=== PATIENT | male | born 1960 | race Caucasian/White ===

== ENCOUNTER 2021-04-07 17:37 | Emergency (ER) | payer OTHER ==
[~2021-04-07] VITALS: Ht 170.2 cm; Wt 63.5 kg
[2021-04-07] MEDS ORDERED: LEVE1000 PO (17:50)
[2021-04-07] MEDS ORDERED: TOLT4CAP PO (17:50)
[2021-04-07] MEDS ORDERED: OLAN10TA3 PO (17:50)
[2021-04-07] MEDS ORDERED: BUSP10TA3 PO (17:50)
[2021-04-07] MEDS ORDERED: CHOL100062 PO (17:50)
[2021-04-07] MEDS ORDERED: CARB200T PO (17:50)
[2021-04-07] MEDS ORDERED: GABA800T11 PO (17:50)
[2021-04-07] MEDS ORDERED: BUSP10TA35 PO (17:50)
[2021-04-07] MEDS ORDERED: TRAZ300T2 PO (17:50)
[2021-04-07] MEDS ORDERED: ZOLP10TA2 PO (17:50)
[2021-04-07] MEDS ORDERED: MIRT-91 PO (17:50)
[2021-04-07] MEDS ORDERED: GABA-536 PO (17:50)
[2021-04-07] MEDS ORDERED: ATOR10TA PO (17:50)
[2021-04-07] MEDS ORDERED: OMEG100037 PO (17:50)
--- NOTE | 2021-04-07 17:50 | NUR ---
[id number] B&C for noted abdominal pain by staff x 2 hours. Patient a/ox1, breathing even and unlabored, no sob noted. Needs attended.
--- NOTE | 2021-04-07 17:54 | NUR ---
facility admin karina # [phone]
--- NOTE | 2021-04-07 18:01 | NUR ---
ua sent to lab.
[2021-04-07 18:07] LABS: BASOPHILS % (AUTO) 0.3 % (0.0-2.0); HEMATOCRIT 30 % (39-51); HEMOGLOBIN 10.1 g/dL (13.5-17.5); LYMPHOCYTES # (AUTO) 1.2 K/uL (0.8-4.8); LYMPHOCYTES % (AUTO) 22.8 % (20.0-44.0); MEAN CORPUSCULAR HGB CONC 33 g/dl (31.0-36.0); MEAN CORPUSCULAR VOLUME 95 fL (80-96); MONOCYTES # (AUTO) 0.4 K/uL (0.1-1.30); MONOCYTES % (AUTO) 7.1 % (2.0-12.0); NEUTROPHILS # (AUTO) 3.7 K/uL (1.8-8.9); NEUTROPHILS % (AUTO) 68.8 % (43.0-81.0); PLATELET COUNT (AUTO) 224 K/uL (150-450); WHITE BLOOD COUNT (AUTO) 5.4 K/uL (4.3-11.0)
[2021-04-07 18:09] LABS: BILIRUBIN,URINE Negative (NEGATIVE); COLOR,URINE YELLOW (YELLOW); LEUKOCYTE ESTERASE ,URINE Negative (NEGATIVE); NITRITE, URINE Negative (NEGATIVE); PH,URINE 7.5 (5.0-8.0); PROTEIN,URINE Negative (NEGATIVE); UGLUCOSE Negative (NEGATIVE); UROBILINOGEN,URINE 0.2 EU/dL (0.2)
[2021-04-07 18:14] LABS: CALCIUM, SERUM 8.1 mg/dL (8.5-10.1); CREATININE 0.6 mg/dL (0.6-1.3); POTASSIUM 3.7 mmol/L (3.5-5.1)
[2021-04-07 18:16] LABS: BACTERIA,URINE None seen /HPF (None Seen); SQUAMOUS EPITHELIAL CELL,UR Few /HPF (None Seen); WBC,URINE 0-2 /HPF (0-3)
[2021-04-07 18:20] LABS: BILIRUBIN,DIRECT 0.1 mg/dL (0.0-0.2); BILIRUBIN,TOTAL 0.1 mg/dL (0.2-1.0); TOTAL PROTEIN, SERUM 6.7 g/dL (6.4-8.2)
[2021-04-07] MEDS ORDERED: LORAZEPAM INJ 2 MG/ML VIAL ONE (18:50)
[2021-04-07] MEDS ORDERED: LORAZEPAM INJ 2 MG/ML VIAL IM ONE (19:00)
--- NOTE | 2021-04-07 19:29 | NUR ---
RECEIVED REPORT FOR [facility]. VSS, PATIENT RESTING IN BED, IN NO ACUTE DISTRESS.
--- NOTE | 2021-04-07 19:47 | NUR ---
[facility] CALLED FOR TRANSPORT. ETA 30-40 MINUTES.
--- NOTE | 2021-04-07 19:57 | NUR ---
UPDATED FACILITY ADMIN KEVIN ON PT STATUS.
--- NOTE | 2021-04-07 20:26 | NUR ---
[facility] AT BED SIDE TO HIDE PASTER THE PT. REPORT GIVEN
[2021-04-07 20:42] VITALS: BP 124/64
== END 2021-04-07 20:42 ==
LOC: ER 17:42
DX: R10.9 Unspecified abdominal pain (principal); R62.50 Unspecified lack of expected normal physiological development in childhood; G40.909 Epilepsy, unspecified, not intractable, without status epilepticus; Z79.899 Other long term (current) drug therapy
CPT/HCPCS: 36415; 74176; 80048; 80076; 81001; 83690; 85025; 96372; 99284; J2060

== ENCOUNTER 2021-07-10 17:39 | Inpatient (IN) | payer OTHER ==
[~2021-07-10] VITALS: Ht 172.7 cm; Wt 49.6 kg
[~2021-07-10 17:39] MED LIST: ATOR10TA PO; BUSP10TA3 PO; BUSP10TA35 PO; CARB200T PO; CHOL100062 PO; GABA-536 PO; GABA800T11 PO; LEVE1000 PO; MIRT-91 PO; OLAN10TA3 PO; OMEG100037 PO; TOLT4CAP PO; TRAZ300T2 PO; ZOLP10TA2 PO
[2021-07-10] MEDS ORDERED: IV LR 1000 ML 1,000 ML BAG IV ONE (18:00)
[2021-07-10] MEDS ORDERED: ACETAMINOPHEN 650 MG/SUPP.RECT RC ONE ×2 (18:00→18:15)
[2021-07-10] MEDS ORDERED: CEFTRIAXONE 1GM BAG (ER ONLY) 50 ML IV ONE ×2 (18:00→18:15)
--- NOTE | 2021-07-10 18:00 | NUR ---
[id number] FRM CORRECTION, NON RESPONSIVE X 2 HOURS. 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 WAS GIVEN 1L NS PROFESSOR OF INDUSTRIAL TECHNOLOGY. PT SEEN & EVAL'D BY DR. MAX. RR EVEN & UNLABORED. PLACED ON AUTO CLAIMS ADJUSTER, SR. WILL CONT TO MONITIOR.
--- NOTE | 2021-07-10 18:07 | NUR ---
SNEHAL CONTAINER COORDINATOR OF BOARD AND CARE
[2021-07-10 18:25] LABS: BASOPHILS % (AUTO) 0.3 % (0.0-2.0); HEMATOCRIT 27 % (39-51); HEMOGLOBIN 8.7 g/dL (13.5-17.5); LYMPHOCYTES # (AUTO) 0.7 K/uL (0.8-4.8); LYMPHOCYTES % (AUTO) 4.7 % (20.0-44.0); MEAN CORPUSCULAR HGB CONC 33 g/dl (31.0-36.0); MEAN CORPUSCULAR VOLUME 93 fL (80-96); MONOCYTES # (AUTO) 1.1 K/uL (0.1-1.30); MONOCYTES % (AUTO) 7.5 % (2.0-12.0); NEUTROPHILS % (AUTO) 87.5 % (43.0-81.0); PLATELET COUNT (AUTO) 257 K/uL (150-450); RED BLOOD CELL COUNT(AUTO) 2.86 MIL/uL (4.5-6.0); WHITE BLOOD COUNT (AUTO) 14.8 K/uL (4.3-11.0)
--- NOTE | 2021-07-10 18:32 | NUR ---
MEDICATED PER ERMD ORDER, PT RA WELL. PT TO CT VIA ROSANNE.
[2021-07-10 18:47] LABS: CALCIUM, SERUM 7.4 mg/dL (8.5-10.1); CARBON DIOXIDE 27 mmol/L (21-32); CHLORIDE 101 mmol/L (98-107); CREATININE 0.9 mg/dL (0.6-1.3); GLUCOSE 118 mg/dL (74-106); POTASSIUM 3.7 mmol/L (3.5-5.1); SODIUM SERUM 134 mmol/L (136-145); UREA NITROGEN, BLOOD 17 mg/dL (7-18)
[2021-07-10 18:53] LABS: ALANINE AMINOTRANSFERASE 12 U/L (12-78); ALBUMIN 2.5 g/dL (3.4-5.0); ALKALINE PHOSPHATASE 106 U/L (46-116); ASPARTATE AMINOTRANSFERASE 13 U/L (15-37); BILIRUBIN,DIRECT 0.2 mg/dL (0.0-0.2); BILIRUBIN,TOTAL 0.4 mg/dL (0.2-1.0); TOTAL PROTEIN, SERUM 6.1 g/dL (6.4-8.2)
[2021-07-10 19:16] LABS: BILIRUBIN,URINE SMALL (NEGATIVE); COLOR,URINE YELLOW (YELLOW); LEUKOCYTE ESTERASE ,URINE Moderate (NEGATIVE); NITRITE, URINE Negative (NEGATIVE); PH,URINE 5.5 (5.0-8.0); PROTEIN,URINE 100 mg/dl (NEGATIVE); UGLUCOSE Negative (NEGATIVE)
[2021-07-10 19:36] LABS: BACTERIA,URINE 1+ /HPF (None Seen); MUCUS,URINE Few /LPF (None Seen); SQUAMOUS EPITHELIAL CELL,UR Few /HPF (None Seen); URINE AMORPHOUS URATE Few /HPF (None Seen)
--- NOTE | 2021-07-10 20:56 | NUR ---
CALLED [facility] PAGED ELENA RODRIGUEZ
--- NOTE | 2021-07-10 22:22 | NUR ---
SPOKE TO VIJAY [employer] ADMINISTRATOR FROM [facility] AND REC'D AUTHORIZATION TO ADMIT THE PT
[2021-07-10] MEDS ORDERED: MAGNESIUM HYDROXIDE 30 ML UDC PO PRN (23:00)
[2021-07-10] MEDS ORDERED: Z GUARD REMEDY 2 OZ OINT TP PRN (23:00)
[2021-07-10] MEDS ORDERED: ONDANSETRON HCL/PF 4 MG/2 ML VIAL IVP PRN (23:00)
[2021-07-10] MEDS ORDERED: MAG HYDROX/AL HYDROX/SIMETH 30 ML UDC PO PRN (23:00)
--- NOTE | 2021-07-11 01:08 | NUR ---
tele [phone]
--- NOTE | 2021-07-11 02:49 | NUR ---
attempted to give report to nurse, staff states the nurse is busy. will call back.
--- NOTE | 2021-07-11 03:03 | NUR ---
REPORT GIVEN TO CUBA NURSE FOR GABI.
--- NOTE | 2021-07-11 03:18 | NUR ---
PATIEN TAKEN UP TO ASSIGNEDROOM VIA ACLS PROTOCOLS.
[2021-07-11 04:00] VITALS: BP 141/70
[2021-07-11] MEDS: IV NS 0.9% 1,000 ML IV PRN ×2 (04:25→18:25)
--- NOTE | 2021-07-11 05:57 | NUR ---
RN notes Admitted a 60 year old male from ER via stretcher with diagnosis of sepsis. Patient has a history of mental retardation and seizure. Alert, awake unable to follow commands with delayed slurred speech. In stable condition, on room air tolerating well. Vital signs wnl. Transferred to bed safely and comfortably. No physical manifestation of pain or discomfort. Remains afebrile with skin warm and dry to touch. Skin intact. Kept clean and dry. Will endorse to next shift for continuity of care.
--- NOTE | 2021-07-11 07:43 | NUR ---
RN OPEN NOTE: PT RECEIVED Alert, awake unable to follow commands with delayed slurred speech. In stable condition, on room air tolerating well. Vital signs wnl. . No COMPLAIN OF pain or discomfort. AFEBRILE, skin warm and dry to touch. Skin intact. IV LOCATED RT FA, 18 G RUNIING NS @75ML/HR. AND UOP 800ML @ 0730. WILL CONTINUE MONITOR AND ASSESS.
[2021-07-11 07:56] LABS: BASOPHILS % (AUTO) 0.1 % (0.0-2.0); HEMATOCRIT 31 % (39-51); HEMOGLOBIN 10.2 g/dL (13.5-17.5); LYMPHOCYTES # (AUTO) 0.5 K/uL (0.8-4.8); MEAN CORPUSCULAR HGB CONC 33 g/dl (31.0-36.0); MEAN CORPUSCULAR VOLUME 93 fL (80-96); MONOCYTES # (AUTO) 0.5 K/uL (0.1-1.30); MONOCYTES % (AUTO) 4.6 % (2.0-12.0); NEUTROPHILS # (AUTO) 10.4 K/uL (1.8-8.9); NEUTROPHILS % (AUTO) 91.3 % (43.0-81.0); PLATELET COUNT (AUTO) 245 K/uL (150-450); RED BLOOD CELL COUNT(AUTO) 3.29 MIL/uL (4.5-6.0); WHITE BLOOD COUNT (AUTO) 11.4 K/uL (4.3-11.0)
[2021-07-11] MEDS: GABAPENTIN 400 MG CAPSULE PO SCH ×3 (08:11→17:00)
[2021-07-11] MEDS: CARBAMAZEPINE 200 MG TABLET PO SCH ×3 (08:11→17:00)
[2021-07-11] MEDS: PANTOPRAZOLE 40 MG TABLET.DR PO SCH (08:12)
[2021-07-11] MEDS: LEVETIRACETAM (250 MG) 250 MG TABLET PO SCH ×2 (08:12→21:32)
[2021-07-11] MEDS: busPIRone 5 MG TABLET PO SCH ×3 (08:12→21:34)
[2021-07-11 08:42] LABS: ALBUMIN 2.5 g/dL (3.4-5.0); BILIRUBIN,TOTAL 0.3 mg/dL (0.2-1.0); CALCIUM, SERUM 7.7 mg/dL (8.5-10.1); CREATININE 0.6 mg/dL (0.6-1.3); MAGNESIUM 1.9 mg/dL (1.8-2.4); PHOSPHORUS 2.3 mg/dL (2.5-4.9); POTASSIUM 3.9 mmol/L (3.5-5.1); TOTAL PROTEIN, SERUM 6.3 g/dL (6.4-8.2)
[2021-07-11] MEDS ORDERED: Medication Not On Formulary EA (Omega-3/Dha/Epa/Fish Oil (Fish Oil 1,000 mg Softgel) 1,0 PO SCH (09:00)
[2021-07-11] MEDS: TOLTERODINE 2 MG CAP.SR PO SCH (09:44)
[2021-07-11 10:11] VITALS: BP 141/75
[2021-07-11 12:00] VITALS: BP 116/53
[2021-07-11] MEDS ORDERED: K PHOS NEUTRAL 250 MG TABLET PO ONE (12:00)
[2021-07-11 16:00] VITALS: BP 120/61
[2021-07-11] MEDS: ACETAMINOPHEN 325 MG TABLET PO PRN ×2 (17:13→21:36)
[2021-07-11] MEDS: CEFTRIAXONE 1 G in IV D5W 50 ML IV SCH (18:10)
--- NOTE | 2021-07-11 19:16 | NUR ---
RN CLOSED NOTE: PT REMAIN Alert, awake able to follow commands with delayed slurred speech. In stable condition, on room air tolerating well. Vital signs wnl. . No COMPLAIN OF pain or discomfort. AFEBRILE, skin warm and dry to touch. Skin intact. IV LOCATED RT FA, 18 G RUINING NS @75ML/HR. AND UOP 1600ML DURING THE SHIFT. SAFETY MEASURES IMPLEMENTED, BED AT LOW POSITION, CALL LIGHT WITHIN REACH. REPORT ENDURES TO COMING SHIFT TO CONTINUE MONITOR AND ASSESS.
[2021-07-11 20:00] VITALS: BP 138/68
[2021-07-11] MEDS: TRAZODONE 50 MG TABLET PO SCH (21:34)
[2021-07-11] MEDS: OLANZAPINE 10 MG TABLET PO SCH (21:35)
[2021-07-11] MEDS: MIRTAZAPINE 15 MG TABLET PO SCH (21:35)
[2021-07-11] MEDS: ATORVASTATIN 10 MG TABLET PO SCH (21:35)
[2021-07-12] VITALS: BP 107/57
--- NOTE | 2021-07-12 03:50 | NUR ---
RN notes Awake, alert but non verbal. In bed with no distress noted. Patient has not ambulated since admission. On room air tolerating well. No complaint of pain or discomfort. Patient is mentally challenged. Able to answer yes or no question. At about 22:44 housekeeping saw patient and blood on the floor. Called for help. And when help came in the room patient was kneeling at the bedside of Teddy. Noted blood on the floor. Help to be in comfortable position. Range of motion performed without pain. Vital signs checked, within normal limits. Put back to bed safely. Noted with lacerations on forehead, right eyelid and back of the head. Cleanse and first aid treatment done. Noted patient pulled out IV peripheral line and grajeda catheter. Blood came from penis due to trauma of pulling out with full blown balloon. Inserted new line at the right and left forearm. Procedure well tolerated with good back flow. Neuro check initiated. Called MD (Dr. Zain Parkinson) and obtained order for CT scan without contrast. Noted and carried out. Kept clean and dry. Will continue to monitor.
[2021-07-12 04:00] VITALS: BP 128/55
[2021-07-12] MEDS: IV NS 0.9% 1,000 ML IV PRN ×2 (07:17→21:52)
[2021-07-12 07:28] LABS: BASOPHILS % (AUTO) 0.3 % (0.0-2.0); EOSINOPHILS % (AUTO) 0.1 % (0.0-6.0); HEMATOCRIT 28 % (39-51); HEMOGLOBIN 9.4 g/dL (13.5-17.5); LYMPHOCYTES # (AUTO) 0.4 K/uL (0.8-4.8); LYMPHOCYTES % (AUTO) 6.7 % (20.0-44.0); MEAN CORPUSCULAR HGB CONC 34 g/dl (31.0-36.0); MEAN CORPUSCULAR VOLUME 93 fL (80-96); MONOCYTES # (AUTO) 0.5 K/uL (0.1-1.30); MONOCYTES % (AUTO) 7.4 % (2.0-12.0); NEUTROPHILS # (AUTO) 5.5 K/uL (1.8-8.9); NEUTROPHILS % (AUTO) 85.5 % (43.0-81.0); PLATELET COUNT (AUTO) 209 K/uL (150-450); WHITE BLOOD COUNT (AUTO) 6.4 K/uL (4.3-11.0)
--- NOTE | 2021-07-12 07:45 | NUR ---
RN notes Pt received in bed Awake, alert but non verbal. with no sign of distress or sob noted at this time. On room air tolerating well. No complaint of pain or discomfort. Patient is mentally challenged. Able to answer yes or no question. soft bilateral restrains observed, safety measures in place to prevent fall bed alarm on bed locked and in lowest position will continue to monitor.
[2021-07-12 07:48] LABS: CALCIUM, SERUM 8.4 mg/dL (8.5-10.1); CREATININE 0.8 mg/dL (0.6-1.3); POTASSIUM 3.8 mmol/L (3.5-5.1)
[2021-07-12 08:00] VITALS: BP_SYST 126; BP_DIAS 60; BP_DIAS 80
[2021-07-12] MEDS: PANTOPRAZOLE 40 MG TABLET.DR PO SCH (08:49)
[2021-07-12] MEDS: busPIRone 5 MG TABLET PO SCH ×3 (08:49→21:50)
[2021-07-12] MEDS: GABAPENTIN 400 MG CAPSULE PO SCH ×3 (08:49→16:36)
[2021-07-12] MEDS: CARBAMAZEPINE 200 MG TABLET PO SCH ×3 (08:49→16:36)
[2021-07-12] MEDS: TOLTERODINE 2 MG CAP.SR PO SCH (08:49)
[2021-07-12] MEDS: LEVETIRACETAM (250 MG) 250 MG TABLET PO SCH ×2 (08:50→21:47)
--- NOTE | 2021-07-12 09:50 | NUR ---
RN NOTES DR. STAFFORD NOTIFIED, PT HAD A FALL THIS MORNING, THUS ON RESTRAINT. CT SCAN RESULT RELAYED NEG FOR IC HEMORRHAGE. ALSO PATIENT PULLED OUT HIS CASTAÑEDA AND OKAY TO NOT RE INSERT IT FOR NOW.
[2021-07-12 12:00] VITALS: BP 129/67
[2021-07-12 16:00] VITALS: BP 132/69
[2021-07-12] MEDS: CEFTRIAXONE 1 G in IV D5W 50 ML IV SCH (18:10)
--- NOTE | 2021-07-12 18:53 | NUR ---
RN CLOSED NOTE: PT REMAIN ALERT MENTALLY CHALLENGE IN STABLE CONDITION, WITH NO SIGH OF DISTRESS AT THIS TIME, PT IS on room air tolerating WELL. No COMPLAIN OF pain or discomfort. IV LOCATED IN THE RIGHT/ FA, 18 G RUINING NS @75ML/HR. BILATERAL SOFT RESTRAIN IN PLACE, SAFETY MEASURES IMPLEMENTED, BED AT LOWEST POSITION, CALL LIGHT WITHIN REACH. WILL REPORT TO INCOMING SHIFT TO CONTINUE MONITORING
[2021-07-12] MEDS: OLANZAPINE 10 MG TABLET PO SCH (21:47)
[2021-07-12] MEDS: ATORVASTATIN 10 MG TABLET PO SCH (21:48)
[2021-07-12] MEDS: TRAZODONE 50 MG TABLET PO SCH (21:49)
[2021-07-12] MEDS: MIRTAZAPINE 15 MG TABLET PO SCH (21:50)
[2021-07-12 22:00] VITALS: BP 132/69
[2021-07-13] VITALS: BP 132/69
[2021-07-13 04:00] VITALS: BP 112/62
--- NOTE | 2021-07-13 05:37 | NUR ---
RN notes Resting comfortably in bed with no distress noted. Breathing even and unlabored. On room air tolerating well. Bilateral wrist restraints in place, and released every two hours for hygiene, repositioning and circulation. No physical manifestation of pain or discomfort. Patient is mentally challenged. Answers a yes or no question. No significant change of condition. Kept clean and dry. Will endorse to next shift for continuity of care.
[2021-07-13 07:19] LABS: BASOPHILS % (AUTO) 0.1 % (0.0-2.0); EOSINOPHILS % (AUTO) 0.3 % (0.0-6.0); HEMATOCRIT 28 % (39-51); HEMOGLOBIN 9.4 g/dL (13.5-17.5); LYMPHOCYTES # (AUTO) 0.6 K/uL (0.8-4.8); MEAN CORPUSCULAR HGB CONC 33 g/dl (31.0-36.0); MEAN CORPUSCULAR VOLUME 95 fL (80-96); MONOCYTES # (AUTO) 0.6 K/uL (0.1-1.30); MONOCYTES % (AUTO) 13.3 % (2.0-12.0); NEUTROPHILS # (AUTO) 3.1 K/uL (1.8-8.9); NEUTROPHILS % (AUTO) 71.3 % (43.0-81.0); PLATELET COUNT (AUTO) 220 K/uL (150-450); RED BLOOD CELL COUNT(AUTO) 2.99 MIL/uL (4.5-6.0); WHITE BLOOD COUNT (AUTO) 4.3 K/uL (4.3-11.0)
--- NOTE | 2021-07-13 07:29 | NUR ---
RN notes PT RECEIVED IN BED TRYING TO GET UP with no distress noted OR SOB, PT IS On room air tolerating well. Bilateral wrist restraints in place, Patient is mentally challenged. Answers a yes or no question . SAFETY MEASURE IN PLACE CALL LIGHT WITHIN REACH, BED ALARM ON, BED ALSO LOCKED AND IN LOWEST POSITION Will CONTINUE TO MONITOR
[2021-07-13] MEDS: PANTOPRAZOLE 40 MG TABLET.DR PO SCH (07:55)
[2021-07-13 08:00] VITALS: BP 135/67
[2021-07-13 08:13] LABS: CALCIUM, SERUM 8.5 mg/dL (8.5-10.1); CREATININE 0.8 mg/dL (0.6-1.3); POTASSIUM 3.8 mmol/L (3.5-5.1)
[2021-07-13] MEDS: GABAPENTIN 400 MG CAPSULE PO SCH ×3 (08:36→16:24)
[2021-07-13] MEDS: LEVETIRACETAM (250 MG) 250 MG TABLET PO SCH ×2 (08:36→21:54)
[2021-07-13] MEDS: busPIRone 5 MG TABLET PO SCH ×3 (08:37→21:55)
[2021-07-13] MEDS: CARBAMAZEPINE 200 MG TABLET PO SCH ×3 (08:44→16:24)
[2021-07-13] MEDS: TOLTERODINE 2 MG CAP.SR PO SCH (08:44)
--- NOTE | 2021-07-13 09:30 | NUR ---
RN NOTE RECEIVED PT AND REPORT FROM GREY VILLARREAL. PT IS ON RA SAT 90% TOLERATING WELL WITH NO SIGNS OF LABORED BREATHING OR DISTRESS, PT IS A/OX2, CONFUSED, AND HAS SOFT WRIST RESTRAINTS X2. PT IS IN DIAPER, HAS WOUND IN BACK OF HEAD, PT IS ON CARDIAC LOW FAT DIET, PT DOES NOT HAVE IV ACCESS AT THIS TIME AFTER PULLING HIS OWN IV OUT, WILL HAVE MIDLINE INSERTED THIS MORNING, PT IS FALL RISK. BED LOCKED IN LOWEST POSITION WITH BED ALARM ON, CALL LIGHT IS WITHIN REACH, HOSPITAL SAFETY PRECAUTIONS ARE IN PLACE. WILL CONTINUE TO MONITOR THIS SHIFT.
--- NOTE | 2021-07-13 11:00 | NUR ---
RN NOTE PT RECEIVED L UA MIDLINE 18G PATENT, FLUSHING, AND RECEIVING FLUIDS AT 75ML/HR.
[2021-07-13 12:00] VITALS: BP 135/67
[2021-07-13] MEDS: MEROPENEM 1 G in IV NS 0.9% 100 ML IV SCH ×2 (13:06→21:55)
[2021-07-13] MEDS: LORAZEPAM INJ 2 MG/ML VIAL IV PRN ×2 (15:14→23:06)
--- NOTE | 2021-07-13 18:43 | NUR ---
RN CLOSING NOTE PT IS LYING IN BED. PT IS ON RA SAT 90% TOLERATING WELL WITH NO SIGNS OF LABORED BREATHING OR DISTRESS, PT IS A/OX2, CONFUSED, AND HAS SOFT WRIST RESTRAINTS X2. PT IS IN DIAPER, HAS WOUND IN BACK OF HEAD WITH MEPLIX, PT IS ON CARDIAC LOW FAT DIET, PT HAS L UA MIDLINE 18G, PT RECEIVED ONE TIME DOSE OF ATIVAN, PT IS FALL RISK. BED LOCKED IN LOWEST POSITION WITH BED ALARM ON, CALL LIGHT IS WITHIN REACH, HOSPITAL SAFETY PRECAUTIONS ARE IN PLACE. WILL ENDORSE TO SAMPLING EXPERT NURSE FOR GABI.
--- NOTE | 2021-07-13 19:40 | NUR ---
RN OPENING NOTE PATIENT ENDORSED BY DAY SHIFT NURSE IN STABLE CONDITIONS. PATIENT IS A/O 1, ON ROOM AIR WITH O2 SAT OF 100%, NO SIGNS OF LABORED BREATHING AT THIS TIME. L UA MIDLINE 18 G IS PATENT WITH NO SIGNS OF INFILTRATION. BILATERAL SOFT WRIST RESTRAINTS REMAIN IN PLACE, NO SINGS OF COMPLICATIONS TO THE SKIN OR CIRCULATION DUE TO SOFT WRIST RESTRAINTS. PATIENT IS NOTED WITH WOUND IN THE BACK OF THE HEAD, WITH MEPLIX, PATIENT IS FALL RISK, ALL SAFETY MEASURES IMPLEMENTED, BED IS AT LOWEST POSITION WITH WHEELS LOCKED IN PLACE, CALL LIGHT IS WITHIN REACH, BED ALARM IS ON. WILL CONTINUE TO MONITOR FOR ANY CHANGES THROUGHOUT SHIFT.
[2021-07-13 20:00] VITALS: BP 143/61
[2021-07-13] MEDS: MIRTAZAPINE 15 MG TABLET PO SCH (21:54)
[2021-07-13] MEDS: TRAZODONE 50 MG TABLET PO SCH (21:54)
[2021-07-13] MEDS: ATORVASTATIN 10 MG TABLET PO SCH (21:54)
[2021-07-13] MEDS: OLANZAPINE 10 MG TABLET PO SCH (21:54)
[2021-07-13] MEDS: IV NS 0.9% 1,000 ML IV PRN (22:06)
[2021-07-14 04:00] VITALS: BP 133/85
[2021-07-14] MEDS: MEROPENEM 1 G in IV NS 0.9% 100 ML IV SCH ×3 (05:19→22:01)
--- NOTE | 2021-07-14 06:40 | NUR ---
RN OPENING NOTE PATIENT ENDORSED BY DAY SHIFT NURSE IN STABLE CONDITIONS. PATIENT IS A/O 1, ON ROOM AIR WITH O2 SAT OF 100%, NO SIGNS OF LABORED BREATHING AT THIS TIME. L UA MIDLINE 18 G IS PATENT WITH NO SIGNS OF INFILTRATION. BILATERAL SOFT WRIST RESTRAINTS REMAIN IN PLACE, NO SINGS OF COMPLICATIONS TO THE SKIN OR CIRCULATION DUE TO SOFT WRIST RESTRAINTS. PATIENT IS NOTED WITH WOUND IN THE BACK OF THE HEAD, WITH MEPLIX, PATIENT IS FALL RISK, ALL SAFETY MEASURES IMPLEMENTED, BED IS AT LOWEST POSITION WITH WHEELS LOCKED IN PLACE, CALL LIGHT IS WITHIN REACH, BED ALARM IS ON. WILL CONTINUE TO MONITOR FOR ANY CHANGES THROUGHOUT SHIFT. Addendum: 07/14/21 at 0650 by COLUMBA JAMES RN DISREGARD THIS NOTE
--- NOTE | 2021-07-14 06:51 | NUR ---
RN CLOSING NOTE PATIENT WILL BE ENDORSED TO DAY SHIFT NURSE WITH NO SIGNIFICANT CHANGES AND IN STABLE CONDITIONS. PATIENT REMAINS A/O x1, ON ROOM AIR WITH O2 SAT OF 100%, NO SIGNS OF LABORED BREATHING AT THIS TIME. L UA MIDLINE 18 G IS PATENT WITH NO SIGNS OF INFILTRATION. BILATERAL SOFT WRIST RESTRAINTS REMAIN IN PLACE, NO SINGS OF COMPLICATIONS TO THE SKIN OR CIRCULATION DUE TO SOFT WRIST RESTRAINTS. PATIENT REMAINS WITH WOUND IN THE BACK OF THE HEAD, WITH MEPLIX, PATIENT IS FALL RISK, ALL SAFETY MEASURES IMPLEMENTED, BED IS AT LOWEST POSITION WITH WHEELS LOCKED IN PLACE, CALL LIGHT IS WITHIN REACH, BED ALARM IS ON. WILL ENDORSE TO DAY SHIFT NURSE FOR CONTINUITY OF CARE.
--- NOTE | 2021-07-14 07:30 | NUR ---
RN OPENING NOTE PATIENT RECEIVED AWAKE IN BED, A/O X 1, ON ROOM AIR WITH O2 SAT OF 100%, NO SIGNS OF LABORED BREATHING AT THIS TIME. VIMAL MIDLINE 18G IN PLACE, PATENT WITH NO SIGNS OF INFILTRATION AND FLUSHING WELL. BILATERAL SOFT WRIST RESTRAINTS REMAIN IN PLACE, NO SINGS OF COMPLICATIONS OR CIRCULATION PROBLEMS. FALL AND ALL SAFETY MEASURES IMPLEMENTED, BED IS AT LOWEST POSITION WITH WHEELS LOCKED IN PLACE, CALL LIGHT IS WITHIN REACH, BED ALARM IS ON. WILL CONTINUE TO MONITOR FOR ANY CHANGES THROUGHOUT SHIFT
[2021-07-14 08:19] LABS: BASOPHILS % (AUTO) 0.2 % (0.0-2.0); EOSINOPHILS % (AUTO) 0.3 % (0.0-6.0); HEMATOCRIT 29 % (39-51); HEMOGLOBIN 10.1 g/dL (13.5-17.5); LYMPHOCYTES # (AUTO) 0.6 K/uL (0.8-4.8); LYMPHOCYTES % (AUTO) 11.8 % (20.0-44.0); MEAN CORPUSCULAR HGB CONC 34 g/dl (31.0-36.0); MEAN CORPUSCULAR VOLUME 91 fL (80-96); MONOCYTES # (AUTO) 0.4 K/uL (0.1-1.30); MONOCYTES % (AUTO) 8.7 % (2.0-12.0); NEUTROPHILS # (AUTO) 3.9 K/uL (1.8-8.9); PLATELET COUNT (AUTO) 252 K/uL (150-450)
[2021-07-14] MEDS: GABAPENTIN 400 MG CAPSULE PO SCH ×3 (08:33→16:25)
[2021-07-14] MEDS: CARBAMAZEPINE 200 MG TABLET PO SCH ×3 (08:33→16:25)
[2021-07-14] MEDS: LEVETIRACETAM (250 MG) 250 MG TABLET PO SCH ×2 (08:33→22:05)
[2021-07-14] MEDS: busPIRone 5 MG TABLET PO SCH ×3 (08:33→22:06)
[2021-07-14] MEDS: PANTOPRAZOLE 40 MG TABLET.DR PO SCH (08:33)
[2021-07-14 08:42] LABS: CALCIUM, SERUM 8.5 mg/dL (8.5-10.1); CREATININE 0.6 mg/dL (0.6-1.3); POTASSIUM 4.1 mmol/L (3.5-5.1)
[2021-07-14] MEDS: TOLTERODINE 2 MG CAP.SR PO SCH (09:32)
[2021-07-14 12:00] VITALS: BP 155/72
[2021-07-14] MEDS: ENSURE ENLIVE 237 ML LIQUID (VANILLA) PO SCH (12:21)
[2021-07-14] MEDS: IV NS 0.9% 1,000 ML IV PRN (12:54)
[2021-07-14] MEDS: LORAZEPAM INJ 2 MG/ML VIAL IV PRN (16:25)
[2021-07-14 20:00] VITALS: BP 123/57
[2021-07-14] MEDS: TRAZODONE 50 MG TABLET PO SCH (22:07)
[2021-07-14] MEDS: MIRTAZAPINE 15 MG TABLET PO SCH (22:07)
[2021-07-14] MEDS: ATORVASTATIN 10 MG TABLET PO SCH (22:07)
[2021-07-14] MEDS: OLANZAPINE 10 MG TABLET PO SCH (22:08)
[2021-07-14] MEDS ORDERED: LORAZEPAM INJ 2 MG/ML VIAL IV PRN (22:30)
[2021-07-15 04:00] VITALS: BP 127/92
[2021-07-15] MEDS: MEROPENEM 1 G in IV NS 0.9% 100 ML IV SCH ×2 (05:17→12:29)
--- NOTE | 2021-07-15 06:35 | NUR ---
RN CLOSING NOTE PT IS LAYING IN BED AGITATED AND CONTINUES TO BE IN RESTRAINTS AND A/O 1, ON ROOM AIR WITH O2 SAT OF 100%, NO SIGNS OF LABORED BREATHING AT THIS TIME. L UA MIDLINE 18 G IS PATENT WITH NO SIGNS OF INFILTRATION. PRN LORAZEPAM FREQ CHANGED FROM Q6HR TO Q4HR PRN. LAST DOSE GIVEN AROUND 2300 07/14. NO SINGS OF COMPLICATIONS TO THE SKIN OR CIRCULATION DUE TO SOFT WRIST RESTRAINTS. PT IS NOTED WITH WOUND IN THE BACK OF THE HEAD, WITH MEPLIX, PATIENT IS FALL RISK, ALL SAFETY MEASURES IMPLEMENTED, BED IS AT LOWEST POSITION WITH WHEELS LOCKED IN PLACE, CALL LIGHT IS WITHIN REACH, BED ALARM IS ON. WILL ENDORSE TO DAY SHIFT NURSE FOR GABI.
[2021-07-15 07:01] LABS: CALCIUM, SERUM 8.7 mg/dL (8.5-10.1); CREATININE 0.8 mg/dL (0.6-1.3); POTASSIUM 3.6 mmol/L (3.5-5.1)
[2021-07-15 07:19] LABS: BASOPHILS % (AUTO) 0.4 % (0.0-2.0); EOSINOPHILS % (AUTO) 0.4 % (0.0-6.0); HEMATOCRIT 32 % (39-51); HEMOGLOBIN 10.8 g/dL (13.5-17.5); LYMPHOCYTES # (AUTO) 1.3 K/uL (0.8-4.8); LYMPHOCYTES % (AUTO) 15.5 % (20.0-44.0); MEAN CORPUSCULAR HGB CONC 34 g/dl (31.0-36.0); MEAN CORPUSCULAR VOLUME 91 fL (80-96); MONOCYTES # (AUTO) 0.9 K/uL (0.1-1.30); MONOCYTES % (AUTO) 10.9 % (2.0-12.0); NEUTROPHILS % (AUTO) 72.8 % (43.0-81.0); PLATELET COUNT (AUTO) 276 K/uL (150-450); RED BLOOD CELL COUNT(AUTO) 3.46 MIL/uL (4.5-6.0); WHITE BLOOD COUNT (AUTO) 8.2 K/uL (4.3-11.0)
--- NOTE | 2021-07-15 07:50 | NUR ---
MS RN OPENING NOTES RECEIVED PATIENT IN BED, AWAKE, A/O X1, SCREAMING, AGITATED. PATIENT ON ROOM AIR; BREATHING EVEN AND UNLABORED; NO SOB NOTED. NO COMPLAINS OF PAIN. VIMAL MIDLINE IN PLACE AND INTACT RUNNING NS @75 MLS/HR. BILATERAL SOFT WRIST RESTRAINS PRESENT. SAFETY PRECAUTIONS IN PLACE; BED IN LOW POSITION AND LOCKED, RAILS UP X2, CALL LIGHT WITHIN REACH. WILL CONTINUE TO MONITOR PATIENT.
[2021-07-15] MEDS: GABAPENTIN 400 MG CAPSULE PO SCH ×2 (08:38→12:29)
[2021-07-15] MEDS: busPIRone 5 MG TABLET PO SCH (08:39)
[2021-07-15] MEDS: TOLTERODINE 2 MG CAP.SR PO SCH (08:39)
[2021-07-15] MEDS: LEVETIRACETAM (250 MG) 250 MG TABLET PO SCH (08:39)
[2021-07-15] MEDS: ENSURE ENLIVE 237 ML LIQUID (VANILLA) PO SCH (08:39)
[2021-07-15] MEDS: PANTOPRAZOLE 40 MG TABLET.DR PO SCH (08:39)
[2021-07-15] MEDS: CARBAMAZEPINE 200 MG TABLET PO SCH ×2 (08:39→13:00)
[2021-07-15] MEDS: IV NS 0.9% 1,000 ML IV PRN (09:38)
[2021-07-15 10:26] LABS: BAND % (MANUAL) 6 % (0.0-5.0); LYMPHOCYTES % (MANUAL) 14 % (16-48); MONOCYTES % (MANUAL) 9 % (0-11.0); NEUTROPHILS % (MANUAL) 71 (42-76)
--- NOTE | 2021-07-15 11:58 | NUR ---
MS RN NOTES PATIENT OFF RESTRAINS
[2021-07-15 12:13] VITALS: BP 142/75
--- NOTE | 2021-07-15 13:40 | NUR ---
MS RN NOTES PATIENT REFUSES PICTURES
--- NOTE | 2021-07-15 14:51 | NUR ---
MS CENTERLESS GRINDER NOTES PATIENT DISCHARGED TO SNF IN MEDICALLY STABLE CONDITION. PATIENT ON ROOM AIR, A/O X1. ALL DISCHARGE PAPERWORK READY AND SIGNED BY 2 RN SINCE PATIENT WAS NOT ABLE TO. BELONGINGS ACCOUNTED FOR AND SIGNED BY 2 RN WELL. FACILITY CONTACTED AND REPORT GIVEN TO ZACHARIAH. JAMIE IN PLACE TO CONTINUE IV ANTIBIOTICS AT FACILITY. PATIENT REFUSED PICTURES. HE WAS RESTING AND DID NOT WANT TO BE BOTHERED. PATIENT PICKED UP IN A GURNEY BY 2 SPECIAL LIBRARY LIBRARIAN ANF LEFT THE UNIT AT 1430.
== END 2021-07-15 14:40 | DRG 720 ==
LOC: ER 17:53 → TELE1 07-11 01:59 → MEDSG1 07-13 09:02
PROVIDERS: ADMIT Hospitalist; ATTEND Internal Medicine
PROC: 05H633Z Insertion of Infusion Device into Left Subclavian Vein, Percutaneous Approach (ICD-10-PCS; principal; 2021-07-13)
PROC: B547ZZA Ultrasonography of Left Subclavian Vein, Guidance (ICD-10-PCS; 2021-07-13)
DX: A41.9 Sepsis, unspecified organism (principal); E43 Unspecified severe protein-calorie malnutrition; N39.0 Urinary tract infection, site not specified; E78.5 Hyperlipidemia, unspecified; E87.1 Hypo-osmolality and hyponatremia; G40.909 Epilepsy, unspecified, not intractable, without status epilepticus; D64.9 Anemia, unspecified; Z68.1 Body mass index [BMI] 19.9 or less, adult; B96.20 Unspecified Escherichia coli [E. coli] as the cause of diseases classified elsewhere; E86.1 Hypovolemia; Z16.12 Extended spectrum beta lactamase (ESBL) resistance; F79 Unspecified intellectual disabilities; Z20.822 Contact with and (suspected) exposure to COVID-19
CPT/HCPCS: 36410; 36415; 70450-TC; 71045-TC; 80048-TC; 80053-TC; 80061-TC; 80076-TC; 81001; 83605-TC; 83735-TC; 84100-TC; 84484-TC; 85025-TC; 85730-TC; 87040-TC; 87081-TC; 87086-TC; 87186-TC; A4349; C9803; G0378; J0696; J2060; J2185; J3490; J7030; J7060; J7120; U0003

== ENCOUNTER 2021-08-02 20:37 | Inpatient (IN) | payer OTHER ==
[~2021-08-02] VITALS: Ht 172.7 cm; Wt 53.5 kg
[~2021-08-02 20:37] MED LIST changes: -GABA-536 PO
--- NOTE | 2021-08-02 20:46 | NUR ---
PT BIBRA C/O POOR INTAKE AND DECREASED URINATION. PT NONVERBAL, BUT DOES UNDERSTAND COMMANDS. PER FACILITY, PT HAS REFUSED TO EAT OR DRINK FOR 3 DAYS AND HAS NOT URINATED TODAY. PT ATTACHED TO MONITOR AND POX. AT BEDSIDE. PT GIVEN BLANKET AND CALL LIGHT WITHIN REACH
[2021-08-02] MEDS ORDERED: IV NS 0.9% 1,000 ML BAG IV ONE (21:00)
[2021-08-02] MEDS ORDERED: ALPR1TAB7 PO (21:01)
[2021-08-02] MEDS ORDERED: ESCI20TA PO (21:01)
[2021-08-02] MEDS ORDERED: LAMO100T17 PO (21:01)
[2021-08-02] MEDS ORDERED: OLAN7.5T3 PO (21:01)
[2021-08-02] MEDS ORDERED: FERR325T23 PO (21:01)
--- NOTE | 2021-08-02 21:29 | NUR ---
URINE COLLECTED AND SENT TO LAB
--- NOTE | 2021-08-02 21:31 | NUR ---
XRAY AT BEDSIDE
[2021-08-02 21:55] LABS: BASOPHILS % (AUTO) 0.2 % (0.0-2.0); EOSINOPHILS % (AUTO) 3.9 % (0.0-6.0); HEMATOCRIT 40 % (39-51); HEMOGLOBIN 13.4 g/dL (13.5-17.5); LYMPHOCYTES % (AUTO) 13.2 % (20.0-44.0); MEAN CORPUSCULAR HGB CONC 33 g/dl (31.0-36.0); MEAN CORPUSCULAR VOLUME 93 fL (80-96); MONOCYTES # (AUTO) 0.6 K/uL (0.1-1.30); MONOCYTES % (AUTO) 7.6 % (2.0-12.0); NEUTROPHILS # (AUTO) 5.8 K/uL (1.8-8.9); NEUTROPHILS % (AUTO) 75.1 % (43.0-81.0); PLATELET COUNT (AUTO) 374 K/uL (150-450); RED BLOOD CELL COUNT(AUTO) 4.34 MIL/uL (4.5-6.0); WHITE BLOOD COUNT (AUTO) 7.7 K/uL (4.3-11.0)
[2021-08-02 22:06] LABS: CALCIUM, SERUM 8.6 mg/dL (8.5-10.1); CARBON DIOXIDE 29 mmol/L (21-32); CHLORIDE 98 mmol/L (98-107); CREATININE 1.1 mg/dL (0.6-1.3); GLUCOSE 126 mg/dL (74-106); SODIUM SERUM 136 mmol/L (136-145); UREA NITROGEN, BLOOD 30 mg/dL (7-18)
[2021-08-02 22:12] LABS: ALANINE AMINOTRANSFERASE 36 U/L (12-78); ALBUMIN 3.6 g/dL (3.4-5.0); ALKALINE PHOSPHATASE 197 U/L (46-116); ASPARTATE AMINOTRANSFERASE 18 U/L (15-37); BILIRUBIN,DIRECT 0.1 mg/dL (0.0-0.2); BILIRUBIN,TOTAL 0.2 mg/dL (0.2-1.0); TOTAL PROTEIN, SERUM 8.7 g/dL (6.4-8.2)
[2021-08-02 22:33] LABS: BILIRUBIN,URINE NEGATIVE (NEGATIVE); COLOR,URINE YELLOW (YELLOW); LEUKOCYTE ESTERASE ,URINE NEGATIVE (NEGATIVE); NITRITE, URINE NEGATIVE (NEGATIVE); PH,URINE 6.5 (5.0-8.0); PROTEIN,URINE TRACE mg/dl (NEGATIVE); UGLUCOSE NEGATIVE (NEGATIVE); UROBILINOGEN,URINE 0.2 EU/dL (0.2)
[2021-08-02 22:44] LABS: BACTERIA,URINE None seen /HPF (None Seen); HYALINE CASTS, URINE Few /LPF (None Seen); SQUAMOUS EPITHELIAL CELL,UR Few /HPF (None Seen); WBC,URINE 0-2 /HPF (0-3)
[2021-08-02 22:45] LABS: MUCUS,URINE Few /LPF (None Seen)
--- NOTE | 2021-08-02 22:47 | NUR ---
MRSA SWAB COLLECTED AND SENT TO LAB. PATIENT'S BELONGINGS LIST DONE.
[2021-08-02] MEDS ORDERED: ALPRAZOLAM 1 MG TABLET PO PRN (23:30)
[2021-08-02] MEDS ORDERED: IV D5/0.45 NACL 1,000 ML IV PRN ×2 (23:30→23:45)
[2021-08-02] MEDS ORDERED: MAGNESIUM HYDROXIDE 30 ML UDC PO PRN (23:30)
[2021-08-02] MEDS ORDERED: MAG HYDROX/AL HYDROX/SIMETH 30 ML UDC PO PRN (23:30)
[2021-08-02] MEDS ORDERED: ONDANSETRON HCL/PF 4 MG/2 ML VIAL IVP PRN (23:30)
[2021-08-02] MEDS ORDERED: ACETAMINOPHEN 325 MG TABLET PO PRN (23:30)
[2021-08-02] MEDS ORDERED: Z GUARD REMEDY 2 OZ OINT TP PRN (23:30)
[2021-08-02] MEDS ORDERED: ZOLPIDEM TARTRATE 5 MG TABLET PO PRN (23:30)
--- NOTE | 2021-08-02 23:42 | NUR ---
ROOM [facility]
--- NOTE | 2021-08-02 23:57 | NUR ---
GAVE REPORT TO GREY WATERMAN FOR GABI
[2021-08-03 00:28] VITALS: BP 119/79
--- NOTE | 2021-08-03 00:35 | NUR ---
RN NOTES PATIENT ARRIVED TO [facility] ROOM 117 AT 0025. PATIENT IS A/O X1. PATIENT DOES NOT SPEAK BUT COMMUNICATES WITH HEAD MOVEMENTS AND HAND GESTURES. PATIENT IS ON ROOM AIR, O2 SAT AT THIS TIME IS 99%. MULTIPLE SKIN ABNORMALITIES NOTED: SACRAL REDNESS, FEET DRYNESS, HEAD AND FINGER WOUNDS. ALL WOUNDS WERE CLEANED AND KEPT DRY. WOUND CONSULT ORDERED. PATIENT HAS IV ACCESS ON R HAND, G#22, PATENT AND FLUSHING WELL. PATIENT ON CASTAÑEDA, FLUSHING URINE, NO COMPLICATIONS NOTED. NO SIGNIFICANT FINDINGS UPON INITIAL NURSING ASSESSMENTS. ALL SAFETY MEASURES IMPLEMENTED, BED AT LOWEST POSITION WITH WHEELS LOCKED, CALL LIGHT WITHIN REACH, BED ALARM IS ON. WILL CONTINUE TO MONITOR FOR ANY CHANGES IN HEALTH STATUS.
[2021-08-03 04:00] VITALS: BP 134/65
--- NOTE | 2021-08-03 07:25 | NUR ---
RN CLOSING NOTES WILL ENDORSE CARE OF PATIENT WHILE PATIENT IS IN BED, ASLEEP BUT WAKES UP TO NAME. PATIENT REMAINS A/O X1. PATIENT IS ON ROOM AIR, O2 SAT AT THIS TIME IS 98%. PATIENT HAS IV ACCESS ON R HAND, G#22, PATENT AND FLUSHING WELL. PATIENT ON CASTAÑEDA, FLUSHING URINE, NO COMPLICATIONS NOTED. NO SIGNIFICANT FINDINGS UPON ALL NURSING ASSESSMENTS. ALL SAFETY MEASURES IMPLEMENTED, BED AT LOWEST POSITION WITH WHEELS LOCKED, CALL LIGHT WITHIN REACH. WILL ENDORSE TO DAY SHIFT NURSE FOR GABI.
--- NOTE | 2021-08-03 07:31 | NUR ---
RN OPENING NOTE Patient in bed, awake. A/O x 1. On room air, breathing evenly and unlabored. No SOB or s/s of distress noted. IV access on Right hand #22G, intact and patent. Chaidez catheter in place, drainng to a yellow colored urine. Safety precautions in place: bed inlow, locked position; siderails up x 3; call light within reach. Will continue to monitor.
--- NOTE | 2021-08-03 08:30 | NUR ---
RN NOTE Patient refused vital signs. Penny, charge nurse, aware.
[2021-08-03] MEDS: LEVETIRACETAM (250 MG) 250 MG TABLET PO SCH ×2 (09:00→16:25)
[2021-08-03] MEDS: GABAPENTIN 400 MG CAPSULE PO SCH ×4 (09:00→16:25)
[2021-08-03] MEDS: ESCITALOPRAM OXALATE (10 MG) 10 MG TABLET PO SCH (09:00)
[2021-08-03] MEDS: N PO SCH (09:00)
[2021-08-03] MEDS: CARBAMAZEPINE 200 MG TABLET PO SCH ×4 (09:00→16:25)
[2021-08-03] MEDS: LamoTRIgine 100 MG TABLET PO SCH (09:00)
[2021-08-03] MEDS: FERROUS SULFATE (325 MG) 325 MG/TAB TABLET PO SCH ×2 (09:00→16:25)
--- NOTE | 2021-08-03 14:03 | NUR ---
patient more awake,alert,pull iv out and grajeda,and walking in [address],verbalized " i am hungry".Dr. EDMOND notified and ok to start feeding patient.patient tolerated apple sauce without difficulty.
--- NOTE | 2021-08-03 14:11 | NUR ---
FALL RISK PRECAUTION OBSERVED ,LOWER BED CALL LIGHT AT REACH BED ALARM ON.
--- NOTE | 2021-08-03 14:29 | NUR ---
PATIENT TOLERATED FOOD WITHOUT ASPIRATION ,ATE 90%.
[2021-08-03 15:16] VITALS: BP 130/70
[2021-08-03 18:11] LABS: BASOPHILS % (AUTO) 0.2 % (0.0-2.0); EOSINOPHILS % (AUTO) 4.8 % (0.0-6.0); HEMATOCRIT 35 % (39-51); HEMOGLOBIN 11.5 g/dL (13.5-17.5); LYMPHOCYTES # (AUTO) 0.8 K/uL (0.8-4.8); LYMPHOCYTES % (AUTO) 10.7 % (20.0-44.0); MEAN CORPUSCULAR HGB CONC 33 g/dl (31.0-36.0); MEAN CORPUSCULAR VOLUME 93 fL (80-96); MONOCYTES # (AUTO) 0.7 K/uL (0.1-1.30); MONOCYTES % (AUTO) 9.8 % (2.0-12.0); NEUTROPHILS # (AUTO) 5.3 K/uL (1.8-8.9); NEUTROPHILS % (AUTO) 74.5 % (43.0-81.0); PLATELET COUNT (AUTO) 339 K/uL (150-450); RED BLOOD CELL COUNT(AUTO) 3.74 MIL/uL (4.5-6.0); WHITE BLOOD COUNT (AUTO) 7.2 K/uL (4.3-11.0)
[2021-08-03 18:28] LABS: CREATININE 0.8 mg/dL (0.6-1.3); PHOSPHORUS 2.2 mg/dL (2.5-4.9); POTASSIUM 3.3 mmol/L (3.5-5.1)
--- NOTE | 2021-08-03 18:44 | NUR ---
RN CLOSING NOTE Patient in bed, awake and resting comfortably. A/O x 1, able to follow simple commands. Stable on room air, no SOB or s/s of distress noted. No IV access, patient keeps pulling out; MD aware. Chaidez catheter in place, draining to a yellow colored urine with an out put of 500 cc. Patient kept clean and dry. Safety precautions maintained: bed in low, locked position; siderails up x 3; call light within reach. Will endorse to date night sitter nurse for GABI.
[2021-08-03] MEDS ORDERED: POTASSIUM CHLORIDE 20 MEQ TAB.PRT.SR PO ONE (19:30)
[2021-08-03 20:00] VITALS: BP 151/53
--- NOTE | 2021-08-03 20:00 | NUR ---
RN OPENING NOTE PT AWAKE IN BED RESTING. ON RA WITH NO RESPIRATORY DISTRESS. A/O X1 AND CONFUSED. MEDICAL/SURGICAL. CASTAÑEDA CATHETER PRESENT. BEDREST. SKIN ISSUES PRESENT. FALL RISK, BED ALARM ON. NO IV PRESENT AND MD AWARE. FLUSHES WELL. LABS AND ORDERS REVIEWED. SAFETY MEASURES IN PLACE. SIDE RAILS RAISED. BED LOWERED. CALL LIGHT WITHIN REACH. WILL CONTINUE TO MONITOR.
[2021-08-03] MEDS ORDERED: TRAZODONE 50 MG TABLET PO SCH (22:00)
[2021-08-03] MEDS ORDERED: ATORVASTATIN 10 MG TABLET PO SCH (22:00)
[2021-08-03] MEDS ORDERED: MIRTAZAPINE 15 MG TABLET PO SCH (22:00)
[2021-08-04 04:00] VITALS: BP 125/61
--- NOTE | 2021-08-04 06:21 | NUR ---
RN CLOSING NOTE PT AWAKE IN BED RESTING. ON RA WITH NO RESPIRATORY DISTRESS. A/O X1 AND CONFUSED. MEDICAL/SURGICAL. CASTAÑEDA CATHETER PRESENT. BEDREST. SKIN ISSUES PRESENT. FALL RISK, BED ALARM ON. NO IV PRESENT AND MD AWARE. FLUSHES WELL. LABS AND ORDERS REVIEWED. SAFETY MEASURES IN PLACE. SIDE RAILS RAISED. BED LOWERED. CALL LIGHT WITHIN REACH. WILL GIVE REPORT TO NIGHT NURSE FOR GABI.
--- NOTE | 2021-08-04 07:57 | NUR ---
RN MORNING NOTES PT RECEIVED IN BED WITH HOB AT 30 DEGREES. PT IS ON RA TOLERATING WELL WITH NO SIGNS OF DISTRESS OR LABORED BREATHING. PT IS A/OX 1 - 2 AND MS BR. PT IS ON REGULAR DIET WITH NO IV ACCESS MD IS AWARE.. BED IS LOCKED IN LOWEST POSITION X2 GUARD RAILS, CALL BHAGAT WITHIN REACH, AND ALL HOSPITAL SAFETY PRECAUTIONS ARE IN PLACE. WILL CONTINUE TO MONITOR THIS SHIFT.
--- NOTE | 2021-08-04 09:02 | NUR ---
WOUND CARE CONSULT: PT THIN AND BONY WITH SACRAL SCARRING AND LEFT MIDDLE FINGER DRY WOUND, PRESENT ON ADMISSION. SURGICAL CONSULT CALLED TO DR RONALDO KITCHEN. RECOMMENDATIONS MADE FOR WOUND CARE AND SKIN PROTECTION. DISCUSSED WITH NURSING STAFF. IN AGREEMENT WITH PLAN OF CARE. Addendum: 08/04/21 at 0903 by DAMIAN SANTIAGO WNDNU Amended: Links added.
[2021-08-04] MEDS: N PO SCH (09:22)
[2021-08-04] MEDS: ESCITALOPRAM OXALATE (10 MG) 10 MG TABLET PO SCH (09:23)
[2021-08-04] MEDS: GABAPENTIN 400 MG CAPSULE PO SCH ×3 (09:23→17:26)
[2021-08-04] MEDS: LEVETIRACETAM (250 MG) 250 MG TABLET PO SCH ×2 (09:23→17:26)
[2021-08-04] MEDS: LamoTRIgine 100 MG TABLET PO SCH (09:23)
[2021-08-04] MEDS: CARBAMAZEPINE 200 MG TABLET PO SCH ×3 (09:23→17:26)
[2021-08-04] MEDS: FERROUS SULFATE (325 MG) 325 MG/TAB TABLET PO SCH ×2 (09:23→17:26)
[2021-08-04 12:00] VITALS: BP 134/62
--- NOTE | 2021-08-04 18:30 | NUR ---
RN DC NOTE PT DC'D TO SNF IN STABLE CONDITION. DC INSTRUCTIONS GIVEN AND EXPLAINED TO EMT; EMT VERBALIZED UNDERSTANDING. ALL PAPER WORK SIGNED AND COMPLETED. ALL BELONGINGS SENT WITH PT. PT HAD NO IV ACCESS. PT TO F/U WITH PCP WITHIN ONE TO TWO WEEKS PER FACILITY PROTOCOL. REPORT GIVEN TO [id number].
== END 2021-08-04 18:30 | DRG 249 ==
LOC: ER 20:41 → MEDSG1 23:44
PROVIDERS: ADMIT Nurse Practitioner Acute Care; ATTEND Student in an Organized Health Care Education/Training Program
DX: E86.0 Dehydration (principal); K52.9 Noninfective gastroenteritis and colitis, unspecified; G93.41 Metabolic encephalopathy; R64 Cachexia; E44.0 Moderate protein-calorie malnutrition; R62.7 Adult failure to thrive; D68.69 Other thrombophilia; G40.909 Epilepsy, unspecified, not intractable, without status epilepticus; Z87.440 Personal history of urinary (tract) infections; E87.6 Hypokalemia; E78.5 Hyperlipidemia, unspecified; Z68.1 Body mass index [BMI] 19.9 or less, adult; R53.1 Weakness; S61.203A Unspecified open wound of left middle finger without damage to nail, initial encounter; X58.XXXA Exposure to other specified factors, initial encounter; Y93.9 Activity, unspecified; Y92.89 Other specified places as the place of occurrence of the external cause; Z20.822 Contact with and (suspected) exposure to COVID-19
CPT/HCPCS: 36415; 71045-TC; 80048-TC; 80076-TC; 81001; 82962-TC; 83735-TC; 84100-TC; 84484-TC; 85025-TC; 85730-TC; 87045-TC; 87081-TC; C9803; G0378; J3490; J7030

== ENCOUNTER 2021-10-02 17:25 | Emergency (ER) | payer OTHER ==
[~2021-10-02] VITALS: Ht 167.6 cm; Wt 58.5 kg
[~2021-10-02 17:25] MED LIST changes: +ALPR1TAB7 PO; -BUSP10TA3 PO; -CHOL100062 PO; +ESCI20TA PO; +FERR325T23 PO; +LAMO100T17 PO; +OLAN7.5T3 PO; -OMEG100037 PO
--- NOTE | 2021-10-02 17:25 | NUR ---
PT BIBRA FROM [facility] C/O MORE ALTERED THAN USUAL. PT IS AAOX0, NOT IN RESPIRATORY DISTRESS, HOOKED TO STAPLER MACHINE, KEPT RESTED AND COMFORTABLE. WILL CONTINUE TO MONITOR.
--- NOTE | 2021-10-02 17:39 | NUR ---
PT SEEN AND EXAMINED BY .
--- NOTE | 2021-10-02 17:45 | NUR ---
IV LINE ESTABLISHED BLOOD DRAWN AND SENT TO LAB.
[2021-10-02 17:51] VITALS: BP 105/87
[2021-10-02 17:57] LABS: BASOPHILS % (AUTO) 0.4 % (0.0-2.0); EOSINOPHILS % (AUTO) 3.3 % (0.0-6.0); HEMATOCRIT 34 % (39-51); HEMOGLOBIN 11.3 g/dL (13.5-17.5); LYMPHOCYTES # (AUTO) 1.4 K/uL (0.8-4.8); LYMPHOCYTES % (AUTO) 31.3 % (20.0-44.0); MEAN CORPUSCULAR HGB CONC 33 g/dl (31.0-36.0); MEAN CORPUSCULAR VOLUME 91 fL (80-96); MONOCYTES # (AUTO) 0.3 K/uL (0.1-1.30); MONOCYTES % (AUTO) 7.4 % (2.0-12.0); NEUTROPHILS # (AUTO) 2.6 K/uL (1.8-8.9); NEUTROPHILS % (AUTO) 57.6 % (43.0-81.0); PLATELET COUNT (AUTO) 233 K/uL (150-450); RED BLOOD CELL COUNT(AUTO) 3.77 MIL/uL (4.5-6.0); WHITE BLOOD COUNT (AUTO) 4.6 K/uL (4.3-11.0)
--- NOTE | 2021-10-02 18:04 | NUR ---
PT IS WHEELED TO CT SCAN VIA [facility].
--- NOTE | 2021-10-02 18:16 | NUR ---
S/W KEVIN ADMIN OF [facility] TEL [phone] PLEASE CONTACT FOR ANY QUESTIONS
[2021-10-02 18:21] LABS: CALCIUM, SERUM 8.5 mg/dL (8.5-10.1); CARBON DIOXIDE 31 mmol/L (21-32); CHLORIDE 99 mmol/L (98-107); CREATININE 0.7 mg/dL (0.6-1.3); GLUCOSE 103 mg/dL (74-106); POTASSIUM 3.6 mmol/L (3.5-5.1); SODIUM SERUM 137 mmol/L (136-145); UREA NITROGEN, BLOOD 12 mg/dL (7-18)
--- NOTE | 2021-10-02 18:24 | NUR ---
URINE SPECIMEN COLLECTED AND SENT TO LAB.
[2021-10-02] MEDS ORDERED: LEVETIRACETAM (500MG) 500 MG in IV NS 0.9% 100 ML IV STA (18:26)
[2021-10-02 18:35] LABS: ALANINE AMINOTRANSFERASE 22 U/L (12-78); ALBUMIN 3.5 g/dL (3.4-5.0); ALKALINE PHOSPHATASE 118 U/L (46-116); ASPARTATE AMINOTRANSFERASE 17 U/L (15-37); TOTAL PROTEIN, SERUM 7.3 g/dL (6.4-8.2)
[2021-10-02 18:39] LABS: ALCOHOL, BLOOD < 3 mg/dL (0-0)
[2021-10-02 18:50] LABS: BILIRUBIN,DIRECT 0.1 mg/dL (0.0-0.2)
--- NOTE | 2021-10-02 18:50 | NUR ---
CALLED PHARMACY FOR DIANE CAMPBELL
[2021-10-02 19:29] LABS: BILIRUBIN,URINE NEGATIVE (NEGATIVE); COLOR,URINE YELLOW (YELLOW); LEUKOCYTE ESTERASE ,URINE NEGATIVE (NEGATIVE); NITRITE, URINE NEGATIVE (NEGATIVE); PH,URINE 5.5 (5.0-8.0); PROTEIN,URINE NEGATIVE (NEGATIVE); UGLUCOSE NEGATIVE (NEGATIVE); UROBILINOGEN,URINE 0.2 EU/dL (0.2)
--- NOTE | 2021-10-02 19:42 | NUR ---
CALLED [facility] FOR TRANSPORT ETA 90 MINS.
[2021-10-02 19:47] LABS: BACTERIA,URINE None seen /HPF (None Seen); SQUAMOUS EPITHELIAL CELL,UR 0-2 /HPF (None Seen); WBC,URINE 0-2 /HPF (0-3)
--- NOTE | 2021-10-02 19:56 | NUR ---
REPORT GIVEN TO KEVIN HESTER OF [facility] FOR GABI.
--- NOTE | 2021-10-02 21:45 | NUR ---
PT DC TO [facility] VIA [facility]. REPORT GIVEN TO DONTE VALDEZ. VSS
--- NOTE | 2021-10-02 21:46 | NUR ---
IV removed. Catheter intact and site benign. Pressure and 4x4 applied to site. No bleeding noted.
[2021-10-03 00:53] LABS: BILIRUBIN,TOTAL 0.1 mg/dL (0.2-1.0)
== END 2021-10-02 21:47 ==
LOC: ER 17:30
DX: R40.4 Transient alteration of awareness (principal); G40.909 Epilepsy, unspecified, not intractable, without status epilepticus; F79 Unspecified intellectual disabilities; E78.5 Hyperlipidemia, unspecified; Z79.52 Long term (current) use of systemic steroids; Z79.811 Long term (current) use of aromatase inhibitors; Z79.891 Long term (current) use of opiate analgesic; Z79.899 Other long term (current) drug therapy
CPT/HCPCS: 36415; 70450; 71045; 80048; 80076; 80307; 80320; 81001; 85025; 85730; 93005; 96365; 99285; J1953 ×2; J7030 ×2; G0480

== ENCOUNTER 2021-11-28 17:22 | Inpatient (IN) | payer OTHER ==
[~2021-11-28] VITALS: Ht 365.8 cm; Wt 62.6 kg
--- NOTE | 2021-11-28 17:35 | NUR ---
contacted amna (critical care physician assistant) at [facility]. jose woo pt does not talk and sometimes he says mom,dad. jose woo pt has unsteady walk.today he was found on the ground in his room. dr fang made aware.
--- NOTE | 2021-11-28 17:53 | NUR ---
ACTIVATED CODE STROKE
--- NOTE | 2021-11-28 17:54 | NUR ---
PATIENT TO CT
[2021-11-28] MEDS ORDERED: IV NS 0.9% 1,000 ML BAG IV ONE (18:00)
--- NOTE | 2021-11-28 18:01 | NUR ---
ACTIVATED TELE MED NEURO, AWAITING CALL BACK FROM DAYSI HARRISON MD
[2021-11-28 18:30] LABS: BASOPHILS % (AUTO) 0.7 % (0.0-2.0); EOSINOPHILS % (AUTO) 1.6 % (0.0-6.0); HEMATOCRIT 36 % (39-51); HEMOGLOBIN 11.7 g/dL (13.5-17.5); LYMPHOCYTES # (AUTO) 1.2 K/uL (0.8-4.8); LYMPHOCYTES % (AUTO) 23.4 % (20.0-44.0); MEAN CORPUSCULAR HGB CONC 33 g/dl (31.0-36.0); MEAN CORPUSCULAR VOLUME 90 fL (80-96); MONOCYTES # (AUTO) 0.4 K/uL (0.1-1.30); MONOCYTES % (AUTO) 7.6 % (2.0-12.0); NEUTROPHILS # (AUTO) 3.3 K/uL (1.8-8.9); NEUTROPHILS % (AUTO) 66.7 % (43.0-81.0); PLATELET COUNT (AUTO) 224 K/uL (150-450); RED BLOOD CELL COUNT(AUTO) 3.95 MIL/uL (4.5-6.0); WHITE BLOOD COUNT (AUTO) 4.9 K/uL (4.3-11.0)
[2021-11-28 18:53] LABS: SERUM AMMONIA 22 umol/L (11-32)
[2021-11-28 19:27] LABS: ACETAMINOPHEN 30 ug/ml (10-30); ALANINE AMINOTRANSFERASE 16 U/L (12-78); ALBUMIN 3.5 g/dL (3.4-5.0); ALCOHOL, BLOOD < 3 mg/dL (0-0); ALKALINE PHOSPHATASE 117 U/L (46-116); ASPARTATE AMINOTRANSFERASE 16 U/L (15-37); BILIRUBIN,DIRECT 0.1 mg/dL (0.0-0.2); BILIRUBIN,TOTAL 0.2 mg/dL (0.2-1.0); CALCIUM, SERUM 8.9 mg/dL (8.5-10.1); CARBON DIOXIDE 30 mmol/L (21-32); CHLORIDE 96 mmol/L (98-107); CREATININE 0.7 mg/dL (0.6-1.3); GLUCOSE 108 mg/dL (74-106); SODIUM SERUM 133 mmol/L (136-145); TOTAL PROTEIN, SERUM 7.2 g/dL (6.4-8.2); UREA NITROGEN, BLOOD 16 mg/dL (7-18)
--- NOTE | 2021-11-28 19:34 | NUR ---
covid swab sent to lab.
[2021-11-28 20:06] LABS: BILIRUBIN,URINE NEGATIVE (NEGATIVE); COLOR,URINE YELLOW (YELLOW); LEUKOCYTE ESTERASE ,URINE NEGATIVE (NEGATIVE); NITRITE, URINE NEGATIVE (NEGATIVE); PROTEIN,URINE NEGATIVE (NEGATIVE); UGLUCOSE NEGATIVE (NEGATIVE); UROBILINOGEN,URINE 0.2 EU/dL (0.2)
[2021-11-28 20:18] LABS: BACTERIA,URINE None seen /HPF (None Seen); SQUAMOUS EPITHELIAL CELL,UR 0-2 /HPF (None Seen); WBC,URINE 0-2 /HPF (0-3)
[2021-11-28] MEDS ORDERED: ASPIRIN 81 MG TAB.CHEW PO ONE (20:30)
[2021-11-28 20:48] LABS: THYROID STIMULATING HORMONE 3.422 uIU/mL (0.358-3.74)
--- NOTE | 2021-11-28 21:02 | NUR ---
OK TO ADMIT
[2021-11-28] MEDS ORDERED: LEVETIRACETAM (500MG) 500 MG in IV NS 0.9% 100 ML IV STA (22:24)
--- NOTE | 2021-11-28 22:54 | NUR ---
ROOM 315-1
--- NOTE | 2021-11-28 23:09 | NUR ---
REPORT GIVEN TO GREY DENG FOR GABI
--- NOTE | 2021-11-28 23:26 | NUR ---
PT TRANSPORTED TO UNIT ON [facility] WITH EMT AND RN AT BEDSIDE W. ACLS PROTOCOL. NAD NOTED DURING TRANSPORT.
[2021-11-28] MEDS ORDERED: MAGNESIUM HYDROXIDE 30 ML UDC PO PRN (23:30)
[2021-11-28] MEDS ORDERED: ONDANSETRON HCL/PF 4 MG/2 ML VIAL IVP PRN (23:30)
[2021-11-28] MEDS ORDERED: IV NS 0.9% 1,000 ML IV PRN (23:30)
[2021-11-28] MEDS ORDERED: LEVETIRACETAM (500MG) 1,000 MG in IV NS 0.9% 100 ML IV SCH (23:30)
[2021-11-28] MEDS ORDERED: MAG HYDROX/AL HYDROX/SIMETH 30 ML UDC PO PRN (23:30)
[2021-11-28] MEDS ORDERED: Z GUARD REMEDY 4 OZ OINT TP PRN (23:30)
[2021-11-28] MEDS ORDERED: ACETAMINOPHEN 325 MG TABLET PO PRN (23:30)
--- NOTE | 2021-11-28 23:40 | NUR ---
MS RN ADMITTING NOTES ADMITTED PATIENT FROM ER VIA [facility], PATIENT IS AWAKE, ALERT AND ORIENTED X 1. BREATHING IS EVEN AND NONLABORED. IN NO ACUTE DISTRESS NOTED. NO SOB NOTED. NO COMPLAINTS OF PAIN AT THIS TIME. ON ROOM AIR, TOLERATING WELL. WITH IV ACCESS ON LEFT AC G #18; INTACT AND SALINE LOCKED. SKIN IS INTACT. VS CHECKED: BP- 137/61 MM HG, OR - 58, RR - 19 BPM, TEMP - 97.6, PULSE OX O2 SAT - 90%. NEEDS ATTENDED. SAFETY MEASURES IMPLEMENTED: CALL LIGHT AND TABLE WITHIN REACH, SIDE RAILS UP X 2, BED IN LOWEST LOCKED POSITION. WILL CONTINUE TO MONITOR
[2021-11-29] MEDS ORDERED: LEVETIRACETAM (500MG) 500 MG/5 ML VIAL IV ONE (01:34)
--- NOTE | 2021-11-29 07:25 | NUR ---
MS RN CLOSING NOTES PATIENT IS IN BED AWAKE, ALERT AND ORIENTED X 1. BREATHING IS EVEN AND NONLABORED. IN NO ACUTE DISTRESS NOTED. NO SOB NOTED. NO COMPLAINTS OF PAIN AT THIS TIME. ON ROOM AIR, TOLERATING WELL. WITH IV ACCESS ON LEFT AC G #18; INTACT AND SALINE LOCKED. ALL NEEDS ATTENDED. WITH SITTER AT BEDSIDE. SAFETY MEASURES IN PLACED: CALL LIGHT AND TABLE WITHIN REACH, SIDE RAILS UP X 2, BED IN LOWEST LOCKED POSITION. ENDORSED TO MORNING SHIFT.
--- NOTE | 2021-11-29 07:50 | NUR ---
MS/RN OPENING NOTES RECEIVED PATIENT IN BED AWAKE, MENTALLY DISABLED. AMBULATORY. ON 1 ON 1 SITTER. BREATHING IS EVEN AND NONLABORED. IN NO ACUTE DISTRESS NOTED. NO SOB NOTED. ON ROOM AIR, TOLERATING WELL. WITH IV ACCESS ON LEFT AC G #18; INTACT AND SALINE LOCKED. SAFETY MEASURES IN PLACED: CALL LIGHT AND TABLE WITHIN REACH, SIDE RAILS UP X 2, BED IN LOWEST LOCKED POSITION. WILL CONTINUE WITH THE PLAN OF CARE.
[2021-11-29] MEDS ORDERED: CRAN200C PO (08:01)
[2021-11-29 08:06] LABS: BASOPHILS % (AUTO) 0.5 % (0.0-2.0); EOSINOPHILS % (AUTO) 1.1 % (0.0-6.0); HEMATOCRIT 39 % (39-51); HEMOGLOBIN 12.9 g/dL (13.5-17.5); LYMPHOCYTES % (AUTO) 20.3 % (20.0-44.0); MEAN CORPUSCULAR HGB CONC 33 g/dl (31.0-36.0); MEAN CORPUSCULAR VOLUME 90 fL (80-96); MONOCYTES # (AUTO) 0.3 K/uL (0.1-1.30); MONOCYTES % (AUTO) 6.6 % (2.0-12.0); NEUTROPHILS # (AUTO) 3.6 K/uL (1.8-8.9); NEUTROPHILS % (AUTO) 71.5 % (43.0-81.0); PLATELET COUNT (AUTO) 262 K/uL (150-450); RED BLOOD CELL COUNT(AUTO) 4.34 MIL/uL (4.5-6.0)
[2021-11-29 08:37] LABS: ALBUMIN 4.1 g/dL (3.4-5.0); BILIRUBIN,TOTAL 0.3 mg/dL (0.2-1.0); CALCIUM, SERUM 9.3 mg/dL (8.5-10.1); CREATININE 0.7 mg/dL (0.6-1.3); MAGNESIUM 2.2 mg/dL (1.8-2.4); PHOSPHORUS 3.1 mg/dL (2.5-4.9); POTASSIUM 4.2 mmol/L (3.5-5.1); TOTAL PROTEIN, SERUM 8.3 g/dL (6.4-8.2)
--- NOTE | 2021-11-29 08:56 | NUR ---
PATIENT PULLED OUT HIS IV ACCESS ON LEFT AC. PATIENT REFUSED FOR RN TO INSERT A NEW IV ACCESS.
[2021-11-29] MEDS: PANTOPRAZOLE 40 MG VIAL IV SCH (09:00)
[2021-11-29] MEDS: ASPIRIN 300 MG/SUPP.RECT RC SCH (09:00)
[2021-11-29] MEDS ORDERED: LORAZEPAM INJ 2 MG/ML VIAL IM/IV STA (09:54)
[2021-11-29] MEDS ORDERED: LEVETIRACETAM (500MG) 1,000 MG in IV NS 0.9% 100 ML IV SCH (10:00)
[2021-11-29] MEDS ORDERED: LORAZEPAM INJ 2 MG/ML VIAL IV PRN (10:00)
[2021-11-29] MEDS: LEVETIRACETAM SOL (5 ML) 100 MG/ML UDC PO SCH ×2 (10:57→21:16)
[2021-11-29] MEDS: LamoTRIgine 100 MG TABLET PO SCH (10:57)
[2021-11-29] MEDS: GABAPENTIN 400 MG CAPSULE PO SCH ×2 (12:37→16:47)
[2021-11-29] MEDS: CARBAMAZEPINE 200 MG TABLET PO SCH ×2 (12:37→16:48)
--- NOTE | 2021-11-29 13:56 | NUR ---
MS/RN OPENING NOTES RECEIVED PATIENT IN BED AWAKE, MENTALLY DISABLED. AMBULATORY. ON 1 ON 1 SITTER. BREATHING IS EVEN AND NONLABORED. IN NO ACUTE DISTRESS NOTED. NO SOB NOTED. ON ROOM AIR, TOLERATING WELL. WITH IV ACCESS ON LEFT AC G #18; INTACT AND SALINE LOCKED. SAFETY MEASURES IN PLACED: CALL LIGHT AND TABLE WITHIN REACH, SIDE RAILS UP X 2, BED IN LOWEST LOCKED POSITION. WILL CONTINUE WITH THE PLAN OF CARE. Addendum: 11/29/21 at 1400 by GIAN ORTIZ RN ERROR
[2021-11-29] MEDS ORDERED: LORAZEPAM INJ 2 MG/ML VIAL IM/IV PRN (16:00)
[2021-11-29] MEDS: FERROUS SULFATE (325 MG) 325 MG/TAB TABLET PO SCH (16:48)
[2021-11-29] MEDS ORDERED: LEVETIRACETAM (250 MG) 250 MG TABLET PO SCH (17:00)
--- NOTE | 2021-11-29 19:20 | NUR ---
MS RN OPENING NOTES RECEIVED PATIENT ON BED; AWAKE, ALERT AND RESPONSIVE; MENTALLY DISABLED WITH SITTER AT BEDSIDE. BREATHING IS EVEN AND NONLABORED. NO SOB NOTED. IN NO ACUTE DISTRESS NOTED. SAFETY MEASURES IMPLEMENTED: CALL LIGHT AND TABLE WITHIN EASY REACH, SIDE RAILS UP X 2, BED IS IN LOWEST LOCKED POSITION. WILL CONTINUE TO MONITOR
[2021-11-29 20:00] VITALS: BP 136/80
[2021-11-29] MEDS ORDERED: busPIRone 5 MG TABLET PO SCH (22:00)
[2021-11-29] MEDS ORDERED: MIRTAZAPINE 15 MG TABLET PO SCH (22:00)
[2021-11-29] MEDS ORDERED: ZOLPIDEM TARTRATE 10 MG TABLET PO SCH (22:00)
[2021-11-29] MEDS ORDERED: ATORVASTATIN 10 MG TABLET PO SCH (22:00)
[2021-11-29] MEDS ORDERED: TRAZODONE 50 MG TABLET PO SCH (22:00)
--- NOTE | 2021-11-30 07:00 | NUR ---
MS RN CLOSING NOTES PATIENT IS ON BED; AWAKE, ALERT AND RESPONSIVE; MENTALLY DISABLED WITH SITTER AT BEDSIDE. BREATHING IS EVEN AND NONLABORED. NO SOB NOTED. IN NO ACUTE DISTRESS NOTED. SAFETY MEASURES IMPLEMENTED: CALL LIGHT AND TABLE WITHIN EASY REACH, SIDE RAILS UP X 2, BED IS IN LOWEST LOCKED POSITION. NEEDS ATTENDED TO. ENDORSED TO MORNING SHIFT FOR CONTINUITY OF CARE.
--- NOTE | 2021-11-30 07:24 | NUR ---
MS RN OPENING NOTES RECEIVED PATIENT AWAKE IN BED IN NO ACUTE SIGNS OF DISTRESS. 1:1 SITTER AT BEDSIDE. A/O X1. VERBALLY RESPONSIVE, DENIES PAIN AT THIS TIME. PT IS CONFUSE AND SCREAMS "MAMA" ON AND OFF. ON ROOM AIR, TOLERATING WELL. NO IV ACCESS NOTED, MD AWARE. SAFETY MEASURES IN PLACED: BED IN LOWEST LOCKED POSITION WITH SIDE RAILS UP X 2. CALL LIGHT WITHIN REACH. WILL CONTINUE TO CLOSELY MONITOR PT..
[2021-11-30 08:00] VITALS: BP 121/67
[2021-11-30] MEDS: CARBAMAZEPINE 200 MG TABLET PO SCH ×3 (08:17→17:07)
[2021-11-30] MEDS: GABAPENTIN 400 MG CAPSULE PO SCH ×3 (08:17→17:08)
[2021-11-30] MEDS: LEVETIRACETAM SOL (5 ML) 100 MG/ML UDC PO SCH (08:17)
[2021-11-30] MEDS: FERROUS SULFATE (325 MG) 325 MG/TAB TABLET PO SCH ×2 (08:17→17:07)
[2021-11-30] MEDS: LamoTRIgine 100 MG TABLET PO SCH (08:17)
[2021-11-30] MEDS: ASPIRIN 300 MG/SUPP.RECT RC SCH (08:22)
[2021-11-30] MEDS: PANTOPRAZOLE 40 MG VIAL IV SCH (08:23)
[2021-11-30 08:33] VITALS: BP 145/83
[2021-11-30] MEDS ORDERED: CRANBERRY EXTRACT 200 MG PO SCH (09:00)
[2021-11-30] MEDS ORDERED: TOLTERODINE 2 MG CAP.SR PO SCH (09:00)
[2021-11-30] MEDS ORDERED: ESCITALOPRAM OXALATE (10 MG) 10 MG TABLET PO SCH (09:00)
--- NOTE | 2021-11-30 19:21 | NUR ---
RN DISCHARGED NOTES PT DISCHARGED TO [facility] IN STABLE CONDITION. PT IS A/O X1. VERBALLY RESPONSIVE AND FOLLOWS SIMPLE COMMANDS. PT IS AWARE THAT HE'S GOING BACK TO [facility] TODAY. V/S TAKEN, STABLE AND RECORDED. ALL BELONGINGS ACCOUNTED FOR. SKIN IS INTACT. PT HAS NO IV ACCESS. CALLED [facility] AND SPOKED TO MARIAELENA, [employer] CLEANING PORTER THAT PT WILL BE D/C'S BACK TO THEIR FACILITY. PT LEFT UNIT AT 1900 VIA [facility] ACCOMPANIED BY 2 EMT'S FROM [facility]. CHARGE NURSE AWARE OF DISCHARGE.
[2021-11-30] MEDS ORDERED: LEVETIRACETAM (250 MG) 250 MG TABLET PO SCH (21:00)
[2021-12-01] MEDS ORDERED: PANTOPRAZOLE 40 MG TABLET.DR PO SCH (09:00)
== END 2021-11-30 19:05 | DRG 53 ==
LOC: ER 18:06 → MED 23:04
PROVIDERS: ADMIT Hospitalist; ATTEND Nurse Practitioner Family
DX: G40.909 Epilepsy, unspecified, not intractable, without status epilepticus (principal); E87.1 Hypo-osmolality and hyponatremia; D64.9 Anemia, unspecified; E78.5 Hyperlipidemia, unspecified; Z20.822 Contact with and (suspected) exposure to COVID-19; F32.A Depression, unspecified; R62.50 Unspecified lack of expected normal physiological development in childhood
CPT/HCPCS: 36415; 70450-TC; 71045-TC; 80048-TC; 80053-TC; 80061-TC; 80076-TC; 80156-TC; 80175; 81001; 82140-TC; 82962-TC; 83605-TC; 83735-TC; 84100-TC; 84443-TC; 85025-TC; 85730-TC; 87040-TC; C9803; G0378; G0480; J1953; J2060; J7030

== ENCOUNTER 2022-02-15 10:52 | Inpatient (IN) | payer OTHER ==
[~2022-02-15] VITALS: Ht 167.6 cm; Wt 64.5 kg
[~2022-02-15 10:52] MED LIST changes: +CRAN200C PO; -OLAN10TA3 PO; -OLAN7.5T3 PO
[2022-02-15] MEDS ORDERED: IV NS 0.9% 1,000 ML BAG IV ONE (11:00)
[2022-02-15 11:26] LABS: BASOPHILS % (AUTO) 0.3 % (0.0-2.0); EOSINOPHILS % (AUTO) 0.6 % (0.0-6.0); HEMATOCRIT 38 % (39-51); HEMOGLOBIN 12.6 g/dL (13.5-17.5); LYMPHOCYTES # (AUTO) 0.8 K/uL (0.8-4.8); LYMPHOCYTES % (AUTO) 12.3 % (20.0-44.0); MEAN CORPUSCULAR HGB CONC 34 g/dl (31.0-36.0); MEAN CORPUSCULAR VOLUME 91 fL (80-96); MONOCYTES # (AUTO) 0.4 K/uL (0.1-1.30); MONOCYTES % (AUTO) 6.3 % (2.0-12.0); NEUTROPHILS # (AUTO) 5.4 K/uL (1.8-8.9); NEUTROPHILS % (AUTO) 80.5 % (43.0-81.0); PLATELET COUNT (AUTO) 207 K/uL (150-450); WHITE BLOOD COUNT (AUTO) 6.7 K/uL (4.3-11.0)
[2022-02-15 11:42] LABS: CALCIUM, SERUM 8.8 mg/dL (8.5-10.1); CARBON DIOXIDE 30 mmol/L (21-32); CHLORIDE 103 mmol/L (98-107); CREATININE 0.8 mg/dL (0.6-1.3); GLUCOSE 87 mg/dL (74-106); POTASSIUM 4.5 mmol/L (3.5-5.1); SODIUM SERUM 141 mmol/L (136-145); UREA NITROGEN, BLOOD 13 mg/dL (7-18)
[2022-02-15 11:47] LABS: ALANINE AMINOTRANSFERASE 18 U/L (12-78); ALKALINE PHOSPHATASE 119 U/L (46-116); ASPARTATE AMINOTRANSFERASE 16 U/L (15-37); BILIRUBIN,DIRECT 0.1 mg/dL (0.0-0.2); BILIRUBIN,TOTAL 0.2 mg/dL (0.2-1.0); TOTAL PROTEIN, SERUM 7.9 g/dL (6.4-8.2)
[2022-02-15] MEDS ORDERED: HALOPERIDOL LACTATE INJ 5 MG/ML VIAL IM ONE (12:00)
[2022-02-15] MEDS ORDERED: HALOPERIDOL LACTATE INJ 5 MG/ML VIAL ONE (12:00)
[2022-02-15] MEDS ORDERED: ONDANSETRON HCL/PF 4 MG/2 ML VIAL IVP PRN (14:30)
[2022-02-15] MEDS ORDERED: ALPRAZOLAM 1 MG TABLET PO PRN (14:30)
[2022-02-15] MEDS ORDERED: Z GUARD REMEDY 4 OZ OINT TP PRN (14:30)
[2022-02-15] MEDS ORDERED: MAG HYDROX/AL HYDROX/SIMETH 30 ML UDC PO PRN (14:30)
[2022-02-15] MEDS ORDERED: MAGNESIUM HYDROXIDE 30 ML UDC PO PRN (14:30)
[2022-02-15] MEDS ORDERED: ACETAMINOPHEN 325 MG TABLET PO PRN (14:30)
[2022-02-15] MEDS: IV NS 0.9% 1,000 ML IV SCH (15:45)
[2022-02-15] MEDS: FERROUS SULFATE (325 MG) 325 MG/TAB TABLET PO SCH (17:51)
[2022-02-15] MEDS: CARBAMAZEPINE 200 MG TABLET PO SCH (17:51)
[2022-02-15] MEDS: LEVETIRACETAM (250 MG) 250 MG TABLET PO SCH (17:51)
[2022-02-15] MEDS: GABAPENTIN 400 MG CAPSULE PO SCH (17:52)
[2022-02-15 20:00] VITALS: BP 119/47
[2022-02-15] MEDS ORDERED: MIRTAZAPINE 15 MG TABLET PO SCH (22:00)
[2022-02-15] MEDS ORDERED: busPIRone HCL 10 MG TABLET PO SCH (22:00)
[2022-02-15] MEDS ORDERED: busPIRone 5 MG TABLET ONE (22:16)
[2022-02-15] MEDS ORDERED: busPIRone 5 MG TABLET PO SCH (22:26)
[2022-02-16] VITALS: BP 112/47
[2022-02-16] MEDS: IV NS 0.9% 1,000 ML IV SCH ×2 (00:30→10:30)
[2022-02-16 04:00] VITALS: BP 120/67
[2022-02-16 04:02] VITALS: BP 120/73
[2022-02-16] MEDS: LEVETIRACETAM (250 MG) 250 MG TABLET PO SCH (08:28)
[2022-02-16] MEDS: GABAPENTIN 400 MG CAPSULE PO SCH ×2 (08:28→12:38)
[2022-02-16] MEDS: CARBAMAZEPINE 200 MG TABLET PO SCH ×2 (08:28→12:38)
[2022-02-16] MEDS: FERROUS SULFATE (325 MG) 325 MG/TAB TABLET PO SCH (08:29)
[2022-02-16] MEDS ORDERED: ESCITALOPRAM OXALATE (10 MG) 10 MG TABLET PO SCH (09:00)
[2022-02-16] MEDS ORDERED: LamoTRIgine 100 MG TABLET PO SCH (09:00)
== END 2022-02-16 12:05 | DRG 422 ==
LOC: ER 10:54 → TRANSITION 14:27 → TELE 16:19
PROVIDERS: ADMIT Internal Medicine; ATTEND Internal Medicine
DX: E86.0 Dehydration (principal); F29 Unspecified psychosis not due to a substance or known physiological condition; E78.5 Hyperlipidemia, unspecified; I10 Essential (primary) hypertension; Z20.822 Contact with and (suspected) exposure to COVID-19; G40.909 Epilepsy, unspecified, not intractable, without status epilepticus; F79 Unspecified intellectual disabilities; Z79.899 Other long term (current) drug therapy; G62.9 Polyneuropathy, unspecified; G31.84 Mild cognitive impairment of uncertain or unknown etiology; D64.9 Anemia, unspecified
CPT/HCPCS: 36415; 71045-TC; 80048-TC; 80076-TC; 82962-TC; 84484-TC; 85025-TC; 87081-TC; 94799-TC; C9803; G0378; J1630; J7030

== ENCOUNTER 2022-02-28 18:50 | Emergency (ER) | payer OTHER ==
[~2022-02-28] VITALS: Ht 172.7 cm; Wt 61.2 kg
--- NOTE | 2022-02-28 19:27 | NUR ---
[id number] FROM [facility], FOR UNWITNESSED GLF. LAC TO LEFT EYE. -BLOODTHINNERS. PT AWAKE LOC WNL. TOLERATING R/A; RESP EVEN AND NONLABORED. SAFETY MEASURES IN PLACE.
--- NOTE | 2022-02-28 19:50 | NUR ---
CUSTOMER PRICING MANAGER AT PT'S BEDSIDE
[2022-02-28] MEDS ORDERED: LORAZEPAM INJ 2 MG/ML VIAL ONE ×2 (19:51→21:40)
[2022-02-28] MEDS ORDERED: LORAZEPAM INJ 2 MG/ML VIAL IM ONE ×2 (20:00→22:00)
[2022-02-28] MEDS ORDERED: TDAP [DIPH/PERTUSSIS/TET] 0.5 ML VIAL IM ONE ×2 (20:00→20:27)
--- NOTE | 2022-02-28 20:09 | NUR ---
WOUND CARE TREATMENT DONE TO LEFT EYE LID LAC
[2022-02-28 20:22] LABS: BASOPHILS % (AUTO) 0.7 % (0.0-2.0); EOSINOPHILS % (AUTO) 1.2 % (0.0-6.0); HEMATOCRIT 37 % (39-51); HEMOGLOBIN 12.6 g/dL (13.5-17.5); LYMPHOCYTES # (AUTO) 1.5 K/uL (0.8-4.8); LYMPHOCYTES % (AUTO) 35.5 % (20.0-44.0); MEAN CORPUSCULAR HGB CONC 34 g/dl (31.0-36.0); MEAN CORPUSCULAR VOLUME 91 fL (80-96); MONOCYTES # (AUTO) 0.3 K/uL (0.1-1.30); MONOCYTES % (AUTO) 6.6 % (2.0-12.0); NEUTROPHILS # (AUTO) 2.3 K/uL (1.8-8.9); RED BLOOD CELL COUNT(AUTO) 4.11 MIL/uL (4.5-6.0); WHITE BLOOD COUNT (AUTO) 4.2 K/uL (4.3-11.0)
[2022-02-28 20:34] LABS: CARBON DIOXIDE 35 mmol/L (21-32); CHLORIDE 103 mmol/L (98-107); CREATININE 0.7 mg/dL (0.6-1.3); GLUCOSE 97 mg/dL (74-106); POTASSIUM 4.1 mmol/L (3.5-5.1); SODIUM SERUM 141 mmol/L (136-145); UREA NITROGEN, BLOOD 9 mg/dL (7-18)
[2022-02-28] MEDS ORDERED: HALOPERIDOL LACTATE INJ 5 MG/ML VIAL ONE (20:34)
[2022-02-28] MEDS ORDERED: HALOPERIDOL LACTATE INJ 5 MG/ML VIAL IM ONE (21:00)
[2022-02-28 21:16] LABS: PLATELET COUNT (AUTO) 200 K/uL (150-450)
--- NOTE | 2022-02-28 21:34 | NUR ---
PT TAKEN TO CT VIA [facility]
--- NOTE | 2022-02-28 21:39 | NUR ---
CAR REFINISHER UNABLE TO PERFORM CT SCAN DO THE PT MOVING DURING IMAGE. MADE AWARE
[2022-02-28] MEDS ORDERED: KETAMINE HCL (500MG/10ML) 50 MG/ML VIAL ONE (23:22)
[2022-02-28] MEDS ORDERED: KETAMINE HCL (500MG/10ML) 50 MG/ML VIAL IM ONE (23:30)
[2022-03-01] MEDS ORDERED: diphenhydrAMINE HCL 50 MG/ML VIAL ONE (00:14)
[2022-03-01] MEDS ORDERED: HALOPERIDOL LACTATE INJ 5 MG/ML VIAL ONE (00:14)
[2022-03-01] MEDS ORDERED: LORAZEPAM INJ 2 MG/ML VIAL ONE (00:14)
[2022-03-01] MEDS ORDERED: LORAZEPAM INJ 2 MG/ML VIAL IV ONE (00:30)
[2022-03-01] MEDS ORDERED: HALOPERIDOL LACTATE INJ 5 MG/ML VIAL IM ONE (00:30)
[2022-03-01] MEDS ORDERED: diphenhydrAMINE HCL 50 MG/ML VIAL IM ONE (00:30)
--- NOTE | 2022-03-01 01:57 | NUR ---
PT BEING TRANSPORTED TO CT VIA [facility]
--- NOTE | 2022-03-01 03:09 | NUR ---
PT SLEEPING COMFORTABLY BREATHING UNLABORED 99% RA. REMAINS ON MONITOR AND V/S WNL.
--- NOTE | 2022-03-01 06:33 | NUR ---
[facility] CALLED FOR TRANSPORT. ETA 60 MINUTES.
--- NOTE | 2022-03-01 07:10 | NUR ---
REPORT GIVEN TO KEVIN AT [facility]
[2022-03-01 08:00] VITALS: BP 120/71
--- NOTE | 2022-03-01 08:24 | NUR ---
Patient discharged to [facility] in stable condition. Written and verbal after care instructions given. Patient unable to verbalizes understanding of instruction. MR. Stable at this time.
== END 2022-03-01 08:24 | disposition home or self-care (01) ==
LOC: ER 19:01
DX: Z86.69 Personal history of other diseases of the nervous system and sense organs (principal); S01.112A Laceration without foreign body of left eyelid and periocular area, initial encounter; E78.5 Hyperlipidemia, unspecified; I10 Essential (primary) hypertension; Z79.899 Other long term (current) drug therapy; W18.30XA Fall on same level, unspecified, initial encounter; Y93.89 Activity, other specified; Y92.89 Other specified places as the place of occurrence of the external cause; Y99.8 Other external cause status
CPT/HCPCS: 36415; 70450; 71045; 72125; 80048; 84484; 85025; 90471; 90715; 93005; 96372 ×3; 99285; A6403; J1200; J1630 ×2; J2060 ×3; J3490